=== PATIENT | female | born 1985 | race Hispanic/Latino ===

== ENCOUNTER 2018-03-21 02:57 | Emergency (ER) | payer OTHER ==
[2018-03-21 03:21] VITALS: RESP 18; O2SAT 100
[2018-03-21 05:02] LABS: ALB/GLOB RATIO 1.5 (1.0-2.1); ALBUMIN 4.4 g/dL (3.5-5.0); ALT/SGPT 28 U/L (9-52); AST/SGOT 22 U/L (14-36); BLOOD UREA NITROGEN 13 mg/dl (7-17); CALCIUM 9.4 mg/dL (8.4-10.2); GFR AFRICAN-AMERICAN > 60; GFR NON-AFRICAN AMERICAN > 60
--- NOTE | 2018-03-21 05:04 | ED PDOC ---
Syncope/Near Syncope/Dizziness Time Seen by Provider: 03/21/18 03:05 Chief Complaint (Nursing): Dizziness/Lightheaded Chief Complaint (Provider): Dizziness/Lightheaded History Per: Patient History/Exam Limitations: no limitations Onset/Duration Of Symptoms: Hrs Additional Complaint(s): Arlene Hall is a 2 year old female with a past medical history of anxiety and panic attacks who is presenting to the ED for evaluation of dizziness, heart racing, and shortness of breath onset thirty minutes after a nap she took earlier this morning. Patient states that she came back from [facility] and used to take Zoloft but is not currently taking it. She states that this felt like her typical panic attacks and denies any homicidal or suicidal ideation. Patient states that she feels completely fine now with all of the symptoms being resolved. PMD: Doctor, Maria Victoria Past Medical History Reviewed: Historical Data, Nursing Documentation, Vital Signs Vital Signs: Last Vital Signs Temp 98.4 F 03/21/18 03:17 Pulse 103 H 03/21/18 03:17 Resp 18 03/21/18 03:17 BP 129/83 03/21/18 03:17 Pulse Ox 100 03/21/18 03:17 - Medical History PMH: Anxiety Other PMH: panic attacks - Surgical History Other surgeries: benign tumor removal from breast - Family History Family History: States: Unknown Family Hx - Social History Current smoker - smoking cessation education provided: No Alcohol: Social Drugs: Denies - Allergies Allergies/Adverse Reactions: Allergies Allergy/AdvReac Type Severity Reaction Status Date / Time No Known Allergies Allergy Verified 03/21/18 03:17 Review of Systems ROS Statement: Except As Marked, All Systems Reviewed And Found Negative Cardiovascular: Positive for: Other (heart racing ) Respiratory: Positive for: Shortness of Breath Musculoskeletal: Negative for: Leg Pain, Other (leg swelling) Neurological: Positive for: Dizziness Psych: Negative for: Suicidal ideation, Other (homicidal ideation) Physical Exam - Reviewed Nursing Documentation Reviewed: Yes Vital Signs Reviewed: Yes - Physical Exam Appears: Positive for: Well, Non-toxic, No Acute Distress Head Exam: Positive for: ATRAUMATIC, NORMAL INSPECTION, NORMOCEPHALIC Skin: Positive for: Normal Color, Warm, DRY Eye Exam: Positive for: EOMI, Normal appearance, PERRL ENT: Positive for: Normal ENT Inspection Neck: Positive for: Normal Cardiovascular/Chest: Positive for: Regular Rate, Rhythm. Negative for: Murmur Respiratory: Positive for: Normal Breath Sounds. Negative for: Respiratory Distress Gastrointestinal/Abdominal: Positive for: Normal Exam, Soft Back: Positive for: Normal Inspection Extremity: Positive for: Normal ROM. Negative for: Deformity, Swelling Neurologic/Psych: Positive for: Alert, Oriented. Negative for: Motor/Sensory Deficits - Laboratory Results Result Diagrams: 03/21/18 04:50 03/21/18 04:50 - ECG ECG Rhythm: Positive for: Normal QRS, Normal ST Segment, Sinus Rhythm Rate: 91 O2 Sat by Pulse Oximetry: 100 (RA) Pulse Ox Interpretation: Normal Medical Decision Making Medical Decision Making: Time: 4:50 Plan: --CMP --CBC --D Dimer --CXR Chest x-ray showed no clinically significant abnormalities. Labs were normal. D Dimer was normal and within normal limits. vitals stable. Patient was offered crisis evaluation by provider which she declined. Scribe Attestation: Documented by, Katalina Ga acting as a scribe for Michelle Suero MD. Provider Scribe Attestation: All medical record entries made by the Scribe were at my direction and personally dictated by me. I have reviewed the chart and agree that the record accurately reflects my personal performance of the history, physical exam, medical decision making, and the department course for this patient. I have also personally directed, reviewed, and agree with the discharge instructions and disposition. Disposition - Clinical Impression Clinical Impression: Dizziness, Anxiety - Patient ED Disposition Is Patient to be Admitted: No Counseled Patient/Family Regarding: Studies Performed, Diagnosis, Need For Followup - Disposition Disposition: Routine/Home Disposition Time: 06:00 Condition: IMPROVED Additional Instructions: follow up with your doctor for your anxiety, in 1-2 days return to the ED with any worsening or concerning symptoms Instructions: Anxiety, Adult (DC), Dizziness, Nonvertigo, (DC) Forms: [employer] (Chilean)
[2018-03-21 05:13] LABS: BASO % 0.6 % (0.0-2.0); EOS % 0.7 % (0.0-4.0); HEMOGLOBIN 13.5 g/dL (12.0-16.0); LYMPH # 1.1 K/uL (1.0-4.3); LYMPH % 17.6 % (20.0-40.0); MEAN CELL VOLUME 92.3 fl (81.0-99.0); MEAN CORPUSCULAR HEMOGLOBIN 31.1 pg (27.0-31.0); MEAN CORPUSCULAR HGB CONC 33.7 g/dL (33.0-37.0); MEAN PLATELET VOLUME 9.2 fl (7.2-11.7); MONO # 0.5 K/uL (0.0-0.8); MONO % 7.6 % (0.0-10.0); NEUT # 4.7 K/uL (1.8-7.0); NEUT % 73.5 % (50.0-75.0); RBC 4.34 Mil/uL (3.80-5.20); RED CELL DISTRIBUTION WIDTH 13.6 % (11.5-14.5); WHITE BLOOD COUNT 6.3 K/uL (4.8-10.8)
[2018-03-21 05:48] VITALS: PULSE 91
[2018-03-21 06:47] VITALS: BP 126/73; TEMP 98.6
--- NOTE | 2018-03-21 08:22 | RAD ---
HISTORY: anxiety COMPARISON: No prior. TECHNIQUE: Chest PA and lateral FINDINGS: LUNGS: No active pulmonary disease. PLEURA: No significant pleural effusion identified. No pneumothorax apparent. CARDIOVASCULAR: Normal. OSSEOUS STRUCTURES: No significant abnormalities. VISUALIZED UPPER ABDOMEN: Normal. OTHER FINDINGS: None. IMPRESSION: No active disease.
== END 2018-03-21 06:48 | disposition home or self-care (01) ==
LOC: H.ER 02:57
DX: F41.9 Anxiety disorder, unspecified (principal); R42 Dizziness and giddiness